=== PATIENT | female | born 1945 | race Caucasian/White ===

== ENCOUNTER 2018-11-08 23:15 | Emergency (ER) | payer SELFPAY ==
[~2018-11-08] VITALS: Ht 152.4 cm; Wt 77.1 kg
[2018-11-08 23:25] VITALS: BP_SYST 159
[2018-11-08] MEDS ORDERED: METF-509 PO (23:35)
[2018-11-08] MEDS ORDERED: CAPT25TA3 PO (23:36)
--- NOTE | 2018-11-09 00:50 | NUR ---
Pt c/o abdominal pain N/V/D since , then pain stopped on 11/08. Pt states that pain resumed yesterday at 6pm. No active N/V/D at this time. Reports generalized abdominal pain 03/22. Pt.'s daughter at bedside.
--- NOTE | 2018-11-09 00:51 | NUR ---
PT AMBULATORY TO BED 5 WITH FAMILY, FOR EVALUATION
--- NOTE | 2018-11-09 01:00 | NUR ---
Dr. Goldman at bedside.
[2018-11-09] MEDS ORDERED: NACL 0.9% 1,000 ML IV ONE (01:09)
[2018-11-09] MEDS ORDERED: LIDOCAINE VISCOUS 2%, 15 ML UDC MM ONE (01:15)
[2018-11-09] MEDS ORDERED: MAG-AL HYDROX/SIMETH 30 ML UDC PO ONE (01:15)
[2018-11-09] MEDS ORDERED: ONDANSETRON HCL 4 MG/2 ML VIAL IVP ONE (01:15)
[2018-11-09] MEDS ORDERED: MORPHINE 4 MG/ML INJ. SYRINGE IVP ONE (01:15)
[2018-11-09 01:39] LABS: BASOPHILS % (AUTO) 0.4 % (0.0-2.0); EOSINOPHILS % (AUTO) 0.4 % (0.0-4.0); HEMOGLOBIN 13.5 g/dL (12.0-16.0); LYMPHOCYTES # (AUTO) 2.7 K/uL (1.0-5.5); LYMPHOCYTES % (AUTO) 30.6 % (20.5-51.5); MEAN CORPUSCULAR HEMOGLOBIN 29 pg (27-31); MEAN CORPUSCULAR HGB CONC 33 % (32-36); MEAN CORPUSCULAR VOLUME 87 fL (79.0-98.0); MONOCYTES # (AUTO) 0.7 K/uL (0.0-1.0); MONOCYTES % (AUTO) 8.4 % (1.7-9.3); NEUTROPHILS # (AUTO) 5.4 K/uL (1.8-7.7); NEUTROPHILS % (AUTO) 60.2 % (40.0-70.0); PLATELET COUNT (AUTO) 256 K/uL (130-430); RED CELL DISTRIBUTION WIDTH 12.3 % (9.0-15.0); WHITE BLOOD COUNT (AUTO) 8.8 K/uL (4.8-10.8)
[2018-11-09 02:01] LABS: ANION GAP 8 (5-15); CALCIUM 9.5 mg/dL (8.4-11.0); CHLORIDE 101 mmol/L (98-107); CREATININE 0.86 mg/dL (0.55-1.30); GLUCOSE 136 mg/dL (70-99); SODIUM SERUM 142 mmol/L (136-145); UREA NITROGEN, BLOOD 14 mg/dL (8-21)
[2018-11-09 02:09] LABS: ALANINE AMINOTRANSFERASE 18 U/L (12-78); ALBUMIN 3.4 g/dL (3.4-4.8); ASPARTATE AMINOTRANSFERASE 18 U/L (10-37); LIPASE 151 U/L (73-393); TOTAL BILIRUBIN 0.5 mg/dL (0.0-1.0)
--- NOTE | 2018-11-09 03:15 | NUR ---
Pt to CT via stretcher in stable condition.
[2018-11-09] MEDS ORDERED: IOHEXOL 100 ML IV ONE (03:40)
--- NOTE | 2018-11-09 03:49 | NUR ---
Pt returns from CT.
[2018-11-09] MEDS ORDERED: cefTRIAXone 1 GM in D5W 50 ML IV ONE (05:00)
--- NOTE | 2018-11-09 05:00 | NUR ---
Pt resting quietly, even and non labored respirations. Daughter at bedside, no needs verbalized.
[2018-11-09] MEDS ORDERED: cefTRIAXone 1 GM VIAL ONE (06:15)
--- NOTE | 2018-11-09 06:30 | NUR ---
Blood Cx X 2 obtained prior to administration of antibiotic.
[2018-11-09 07:00] VITALS: BP_SYST 142
--- NOTE | 2018-11-09 07:00 | NUR ---
Patient given written and verbal discharge instructions and verbalizes understanding. ER MD discussed with patient the results and treatment provided. Patient in stable condition. ID arm band removed. IV catheter removed intact and dressing applied, no active bleeding. Rx of [place], Cipro, Zofran, Flagyl, Famotidine given. Patient educated on pain management and to follow up with PMD. Pain Scale 0/10. Opportunity for questions provided and answered. Medication side effect fact sheet provided.
== END 2018-11-09 07:00 | disposition home or self-care (01) ==
LOC: SED 23:15
DX: K52.9 Noninfective gastroenteritis and colitis, unspecified (principal); N39.0 Urinary tract infection, site not specified
CPT/HCPCS: 36415; 74177; 80053; 83690; 84484; 85025; 87040; 93005; 96365; 96375; 99284; J0696; J2001; J2270; J2405; J7030 ×2; Q9967